=== PATIENT | male | born 1970 | race Two or more races ===

== ENCOUNTER 2020-06-12 06:30 | Day surgery (SDC) | payer OTHER | END 2020-06-12 15:55 | disposition home or self-care (01) | LOC: CIR.AMB 06:30 | PROVIDERS: ATTEND Orthopaedic Surgery Hand Surgery | DX: S52.532A Colles' fracture of left radius, initial encounter for closed fracture (principal); T84.89XA Other specified complication of internal orthopedic prosthetic devices, implants and grafts, initial encounter; Z20.828 Contact with and (suspected) exposure to other viral communicable diseases ==